=== PATIENT | male | born 1955 | race American Indian/Alaskan Native ===

== ENCOUNTER 2018-09-21 11:00 | Day surgery (SDC) | payer OTHER ==
[~2018-09-21 11:00] MED LIST: NACL 0.9% 1000 ML 1,000 ML IV SCH
[2018-09-21] MEDS ORDERED: DIPRIVAN 10 MG/ML IV ONE (11:02)
[2018-09-21] MEDS ORDERED: WATER FOR IRRIG STERILE IR ONE (11:05)
--- NOTE | 2018-09-21 12:29 | Anesthesia Consultation ---
Anesthesia Consult and Med Hx Date of service: 09/21/18 - Airway Anesthetic Teeth Evaluation: Poor ROM Head & Neck: Adequate Mental/Hyoid Distance: Adequate Mallampati Class: Class II Intubation Access Assessment: Probably Good - Pulmonary Exam CTA: Yes - Cardiac Exam Cardiac Exam: RRR - Pre-Operative Health Status ASA Pre-Surgery Classification: ASA3 Proposed Anesthetic Plan: MAC - Pulmonary Hx Smoking: No Hx Asthma: No Hx Sleep Apnea: No - Cardiovascular System Hx Hypertension: Yes (on CoQ10) Hx Coronary Artery Disease: No Hx Heart Attack/AMI: No - Central Nervous System Hx Neuromuscular Disorder: No CVA: No Hx Psychiatric Problems: No - Gastrointestinal Hx Gastroesophageal Reflux Disease: No - Endocrine Hx Renal Disease: No Hx Liver Disease: No Hx Insulin Dependent Diabetes: No Hx Non-Insulin Dependent Diabetes: No Hx Hypothyroidism: No ("resolved with iodine supplements") - Hematic Hx Anemia: No - Other Systems Hx Alcohol Use: No Hx Obesity: No - Additional Comments Anesthesia Medical History Comments: No GAC, No FHAC
--- NOTE | 2018-09-21 12:29 | Anesthesia Day of Surgery ---
Anesthesia Day of Surgery - Day of Surgery Patient Examined: Yes Patient H&P Reviewed: Yes Patient is NPO: Yes Beta Blockers: No Cardiac Clearance: No Pulmonary Clearance: No
--- NOTE | 2018-09-21 13:36 | Short Stay Summary ---
Short Stay Documentation Date of service: 09/21/18 Narrative H&P: The patient presents for diagnostic colonoscopy for persistent RLQ pain. - History Past Medical History: hyperlipidemia, other (celiac disease,) Past Surgical History: No surgical history Social history: no significant social history, no smoking, no alcohol abuse - Allergies and Medications Current Medications: Allergies gluten Allergy (Verified 09/21/18 12:01) Diarrhea amoxicillin Adverse Reaction (Verified 09/21/18 12:01) Hives Sulfa (Sulfonamide Antibiotics) Adverse Reaction (Verified 09/21/18 12:01) Rash Home Medications Medication Instructions Recorded Confirmed Last Taken Type Aspirin BABY CHEW TAB 81 mg PO DAILY 09/17/18 09/17/18 Unknown History Cod Liver Oil 1 tab PO DAILY 09/17/18 09/17/18 Unknown History Coq-10 1 tab PO DAILY 09/17/18 09/17/18 Unknown History Garlic 400 mg PO DAILY 09/17/18 09/17/18 Unknown History Magnesium 1 tab PO DAILY 09/17/18 09/17/18 Unknown History Active Medications Sodium Chloride (Nacl 0.9% 1000 Ml) 1,000 mls @ 50 mls/hr IV DIRECT ANDREW Last Admin: 09/21/18 13:10 Dose: 50 mls/hr Documented by: - Physical exam General appearance: no acute distress, well-nourished Integumentary: no rash, no growths, no abnormal pigmentation HEENT: Atraumatic, PERRLA, EOMI, Mucous membr. moist/pink Lungs: Clear to auscultation, Normal air movement Heart: Regular rate, Normal S1, Normal S2, No murmurs Gastrointestinal: normoactive bowel sounds, no tenderness, no distended, no masses, no guarding, no organomegaly Male Genitourinary: deferred Rectal Exam: normal exam-external/orifice, normal rectal tone, no mass Extremities: no ischemia, pulses intact, pulses symmetrical, No edema, normal temperature, normal color Neurological: Normal gait, Normal speech, Strength at 5/5 X4 ext, Normal tone, Sensation intact, Cranial nerves 3-12 NL - Brief post op/procedure progress note Date of procedure: 09/21/18 Findings: see dictation Estimated blood loss: none Pathology: none Condition: stable - Disposition Condition at discharge: Good Disposition: DC-01 TO HOME OR SELFCARE - Discharge Diagnoses (1) RLQ abdominal pain Status: Acute Short Stay Discharge Plan Activity: other (no driving for 24 hours) Weight Bearing Status: Weight Bear as Tolerated Diet: other (gluten free diet) Follow up with: AMBREEN MOTA MD [Primary Care Provider] - 7 Days
--- NOTE | 2018-09-21 13:38 | Operative Report ---
Operative Report Operative Report: Date of procedure: 09/21/2018 Preprocedure diagnosis: Persistent right lower quadrant pain. History of const ipation. Diagnostic colonoscopy. Post procedure diagnosis: Normal study Procedure: Colonoscopy to the cecum and terminal ileum Endoscopist: Dr. Hernandez Anesthesia: Monitored anesthesia care per anesthesia department Estimated blood loss: 0 Medications: Monitored anesthesia care. See separate report by anesthesia for details. After careful discussion of the nature and purpose of the procedure as well as details of the technique risks benefits and alternatives the patient gave consent. Please see recent history and physical from the office. The patient was placed in the left lateral decubitus position and medicated per anesthesia. A rectal exam was performed sphincter tone was normal there were no masses palpable. The Shark Punch 570 scope was passed transanally and advanced under continuous direct vision without difficulty to the cecum. The colon was well prepared. The cecum was normal. Ileocecal valve was normal. The scope was advanced to the ileocecal valve and the distal 15 cm of ileum was inspected which appeared normal. The ascending colon was normal and on forward and retroflexed views. The transverse colon, descending colon, and sigmoid colon were normal. The re ctum was normal on forward and retroflexed views. The procedure was well- tolerated overall and the patient was observed in recovery. Conclusions: Normal colonoscopy to the cecum and terminal ileum Plan: Office follow-up. Consider dietitian consultation to further evaluate compliance to a gluten-free diet. Consider pill camera study or MR enterography. Signed electronically: Wang Hernandez M.D.
--- NOTE | 2018-09-21 13:54 | Post Anesthesia Evaluation ---
- Post Anesthesia Evaluation Patient Participated: Yes Airway Patent: Yes Stable Respiratory Function: Yes Nausea/Vomiting: No Temp > 96.8F: Yes Pain Manageable: Yes Adequeate Hydration: Yes Anesthesia Complications: No Block Receding Appropriately: Not Applicable Patient on Ventilator: No
[2018-09-21 15:34] VITALS: BP 114/83
== END 2018-09-21 11:01 | disposition home or self-care (01) ==
LOC: GIO 11:00
PROVIDERS: ATTEND Internal Medicine Gastroenterology
DX: K59.00 Constipation, unspecified (principal); R10.31 Right lower quadrant pain; H40.9 Unspecified glaucoma; E78.00 Pure hypercholesterolemia, unspecified; I10 Essential (primary) hypertension; E03.9 Hypothyroidism, unspecified; Z88.6 Allergy status to analgesic agent; Z88.2 Allergy status to sulfonamides; Z79.82 Long term (current) use of aspirin; Z79.899 Other long term (current) drug therapy; Z98.49 Cataract extraction status, unspecified eye; Z88.8 Allergy status to other drugs, medicaments and biological substances
CPT/HCPCS: 45378; J2704; J7030